=== PATIENT | male | born 1955 | race Caucasian/White ===

== ENCOUNTER 2018-09-17 09:32 | Emergency (ER) | payer MEDICARE, BC ==
[2018-09-17] MEDS ORDERED: HYDROMORPHONE HCL 2 MG/ML SOL IV ONE ×2 (09:56→15:05)
[2018-09-17] MEDS ORDERED: LORAZEPAM 2 MG/ML SOL IV ONE (09:57)
[2018-09-17] MEDS ORDERED: LORAZEPAM 2 MG/ML SOL ONE (10:03)
[2018-09-17] MEDS ORDERED: HYDROMORPHONE 1 MG/ML SYRINGE ONE ×2 (10:03→15:09)
[2018-09-17] MEDS: SODIUM CHLORIDE 0.9% FLUSH 10 ML SOL IV PRN ×2 (10:06→10:10)
[2018-09-17 10:59] VITALS: RESP 18; TEMP 97.9
[2018-09-17] MEDS ORDERED: CYCLOBENZAPRINE 10 MG TAB PO ONE (15:05)
[2018-09-17] MEDS ORDERED: CYCLOBENZAPRINE 10 MG TAB ONE (15:10)
[2018-09-17 17:12] VITALS: O2SAT 95
[2018-09-17 17:13] VITALS: BP 131/85; PULSE 73
== END 2018-09-17 17:00 | DRG 552 ==
LOC: ED 09:32
DX: M54.9 Dorsalgia, unspecified (principal)
CPT/HCPCS: 70450; 71045; 72128; 72131; 96374; 96375; 99283; 99285; J2060; A9270-GY; J1170

== ENCOUNTER 2018-10-06 20:02 | Emergency (ER) | payer BC, MEDICARE ==
[2018-10-06] MEDS ORDERED: KETOROLAC TROMETHAMINE 30 MG/ML SOL IM ONE (20:28)
[2018-10-06 20:29] VITALS: RESP 20; TEMP 98.1
[2018-10-06 20:29] LABS: BASOPHILS % (AUTO) 1 % (0-3); EOSINOPHILS % (AUTO) 3 % (0-9); HEMATOCRIT 41 % (39-53); HEMOGLOBIN 13.9 gm/dl (13.5-17.7); LYMPHOCYTES % (AUTO) 57.2 % (10-50); MEAN CORPUSCULAR HEMOGLOBIN 30.7 pg (27.0-32.0); MEAN CORPUSCULAR HGB CONC 33.8 gm/dl (32.0-36.0); MEAN CORPUSCULAR VOLUME 91 fL (80-100); MONOCYTES % (AUTO) 7.5 % (0-12); NEUTROPHILS % (AUTO) 31.7 % (37-80)
[2018-10-06] MEDS ORDERED: KETOROLAC TROMETHAMINE 30 MG/ML SOL ONE (20:35)
[2018-10-06 20:49] LABS: BLOOD UREA NITROGEN 18 mg/dl (7-18); CALCIUM 9.2 mg/dl (8.5-10.1); CHLORIDE 106 mMol/L (98-107); CREATININE 1.09 mg/dl (0.80-1.30); GLUCOSE 92 mg/dl (74-106); POTASSIUM 4.1 mMol/L (3.5-5.1); SODIUM 143 mMol/L (136-145); TROP I < 0.017 ng/ml (0.000-0.056)
[2018-10-06 21:55] VITALS: BP 132/67; PULSE 88; O2SAT 96
== END 2018-10-06 22:15 | DRG 914 ==
LOC: ED 20:02
DX: S09.90XA Unspecified injury of head, initial encounter (principal); W05.0XXA Fall from non-moving wheelchair, initial encounter; R07.89 Other chest pain; M54.5 Low back pain
CPT/HCPCS: 36415; 70450; 71045; 80048; 84484; 85025; 93005; 96372; 99283; 99284; J1885